=== PATIENT | male | born 1990 | race Caucasian/White ===

== ENCOUNTER 2023-11-15 11:59 | Emergency (ER) | payer BC ==
[2023-11-15] MEDS ORDERED: Fluorescein Opthalmic Strip ONE (12:06)
[2023-11-15] MEDS ORDERED: Proparacaine 0.5% Opth 15 ML BOT ONE (12:07)
== END 2023-11-15 12:45 | disposition home or self-care (01) ==
LOC: ERS 11:59
DX: S05.02XA Injury of conjunctiva and corneal abrasion without foreign body, left eye, initial encounter (principal); S05.01XA Injury of conjunctiva and corneal abrasion without foreign body, right eye, initial encounter; W31.2XXA Contact with powered woodworking and forming machines, initial encounter
CPT/HCPCS: 99283